=== PATIENT | female | born 1985 | race Hispanic/Latino ===

== ENCOUNTER 2016-12-23 10:31 | Emergency (ER) | payer OTHER ==
[2016-12-23 11:33] VITALS: BMI 28.0
[2016-12-23 12:18] LABS: HEMATOCRIT 33.8 % (34.0-47.0); MEAN CELL VOLUME 76.5 fl (81.0-99.0); MEAN CORPUSCULAR HEMOGLOBIN 25.3 pg (27.0-31.0); MEAN CORPUSCULAR HGB CONC 33.1 g/dL (33.0-37.0); RED CELL DISTRIBUTION WIDTH 12.9 % (11.5-14.5); WHITE BLOOD COUNT 11.2 K/uL (4.8-10.8)
[2016-12-23 12:34] LABS: ALB/GLOB RATIO 1.1 (1.0-2.1); ALKALINE PHOSPHATASE 113 U/L (38-126); ALT/SGPT 26 U/L (9-52); AST/SGOT 19 U/L (14-36); BLOOD UREA NITROGEN 8 mg/dl (7-17); CALCIUM 8.8 mg/dL (8.4-10.2); CARBON DIOXIDE 20 mmol/L (22-30); CHLORIDE 105 mmol/L (98-107); GFR AFRICAN-AMERICAN > 60; GLUCOSE,RANDOM 76 mg/dL (65-105); POTASSIUM 3.8 MMOL/L (3.6-5.0); SODIUM 133 mmol/l (132-148); TOTAL PROTEIN 6.7 G/DL (6.3-8.2); URIC ACID 3.8 mg/Dl (2.2-7.5)
[2016-12-23 12:35] LABS: RBC URINE 3 /hpf (0-3); URINE BACTERIA RARE (<OCC); URINE BILIRUBIN NEGATIVE (NEGATIVE); URINE BLOOD NEGATIVE (NEGATIVE); URINE COLOR YELLOW (YELLOW); URINE GLUCOSE (UA) NEG (Normal); URINE KETONE 20 mg/dL (NEGATIVE); URINE LEUKOCYTE ESTERASE TRACE Leu/uL (Negative); URINE PROTEIN NEGATIVE (NEGATIVE); URINE UROBILINOGEN 0.2-1.0 mg/dL (0.2-1.0); WBC URINE 5 /hpf (0-5)
[2016-12-23 18:17] VITALS: BP 117/71; PULSE 81; RESP 20; TEMP 98.4; O2SAT 98
== END 2016-12-23 13:30 | disposition home or self-care (01) ==
LOC: H.EROB 10:31 → H.EROB2 10:31
DX: O47.1 False labor at or after 37 completed weeks of gestation (principal); Z3A.38 38 weeks gestation of pregnancy

== ENCOUNTER 2017-01-14 23:05 | Inpatient (IN) | payer OTHER ==
[2017-01-14 23:33] VITALS: BMI 29.9
[2017-01-14] MEDS ORDERED: Lactated Ringer's 1,000 ML IV SCH (23:45)
[2017-01-14] MEDS: Lactated Ringer's 1,000 ML IV SCH (23:50)
[2017-01-15] MEDS ORDERED: Lactated Ringer's 500 ML IV SCH
[2017-01-15 00:21] LABS: BASO # 0.1 K/uL (0.0-0.2); BASO % 0.9 % (0.0-2.0); EOS # 0.2 K/uL (0.0-0.7); HEMATOCRIT 34.2 % (34.0-47.0); LYMPH % 17.3 % (20.0-40.0); MEAN CELL VOLUME 75.9 fl (81.0-99.0); MEAN CORPUSCULAR HEMOGLOBIN 24.3 pg (27.0-31.0); MEAN PLATELET VOLUME 9.4 fl (7.2-11.7); MONO % 5.9 % (0.0-10.0); NEUT # 12.8 K/uL (1.8-7.0); NEUT % 74.9 % (50.0-75.0); NRBC % 0.1 % (0.0-0.0); RED CELL DISTRIBUTION WIDTH 13.5 % (11.5-14.5); WHITE BLOOD COUNT 17.1 K/uL (4.8-10.8)
[2017-01-15] MEDS ORDERED: Benzocaine/Menthol SPRAY TOP PRN ×2 (00:30→04:44)
[2017-01-15] MEDS ORDERED: Bupivacaine HCl 0.25% PF (10 ml) Inj ONE (00:42)
[2017-01-15] MEDS ORDERED: Lidocaine 1% Inj (20ml) ONE (00:50)
[2017-01-15] MEDS: Lactated Ringer's 1,000 ML IV SCH (00:52)
--- NOTE | 2017-01-15 02:55 | OBPN ---
Datetime: 01/15/2017 00:44 IP Progress Impression: Normal progression of labor; Reassuring heart rate IP Procedures: Sterile Vag Exam; Epidural Placement IP Progress Plan: Continue present management; Anticipate Vaginal Delivery FHR - Baseline A Provider: 150 Gestation - Est Wks by US: 38.5 IP Progress Note Comment: Patient received epidural, painful ctx's q2min SVE: cervix dilated 10cm/ 100% effacement/ 0 A: normal progression of labor P: -continue present management -continuous monitoring, monitor labor progress Dr. Choudhury at bedside, case discussed Lisa Leija M.D. PGY2 OB Hospitalist on-call...OPt rec'd epidural (screaming when 8-9cm)mahndo NICHD Accel Fetus A IP Provider: 15X15 FHR Category Provider Fetus A: Category I NICHD Variability Prov Fetus A: Moderate 6-25bpm Dilatation, Provider: 10 Effacement, Provider: 100 Station, Provider: 0 NICHD Decel Fetus A IP Provider: None Datetime: 01/14/2017 23:27 Pool Provider: Positive Membranes, Provider: Ruptured Amniotic Fluid Color, Provider: Clear Contraction Comments Provider: + Presentation-Admit: Vertex Vital Signs Provider: Reviewed; Within Normal Limits
--- NOTE | 2017-01-15 02:55 | OBADHP ---
Datetime: 01/15/2017 00:44 FHR - Baseline A Provider: 150 Gestation - Est Wks by US: 38.5 NICHD Variability Prov Fetus A: Moderate 6-25bpm NICHD Accel Fetus A IP Provider: 15X15 FHR Category Provider Fetus A: Category I NICHD Decel Fetus A IP Provider: None Dilatation, Provider: 10 Effacement, Provider: 100 Station, Provider: 0 Datetime: 01/14/2017 23:27 Admit Comment, IP Provider: 31 yr at 38.5 wks GA by 1st tri US, SEVERIANO 01/23/17 , hx IVF, PCOS o n Metformin presents to [facility] with complaint of LOF since 10:30pm with ctxs q2min which began at 10:45 pm. Patient receives routine care (Dr Aguila - chart rev'd), denies any complicati ons with this . OBHx: 1 induced , 3 spontaneous, 3rd tri labs wnl (GBS neg, RPR neg, HIV neg), Hep B neg, Rubella Immune, Tdap given, Influenza vaccine given PMHx: PCOS SurgHx: excision buttock abscess SocHx: denies smoking, Etoh, drugs FMHx: noncontributory Meds: Metformin 500mg PO TID, Amoxicillin (last dose today for URI) Allergies: Clindamycin Monitoring: FHR 145 with moderate variability, accelerations 15x15, no decels PE: general: painful contractions q2min, otherwise pleasant, in no acute distress HEENT: normocephalic, atraumatic, PERRLA Lungs: clear to auscultation, good air entry Cardiovascular: normal S1 S2 , no m/r/g Abd: normal bowel sounds, nontender Ext: no edema, full ROM SVE: cervix dilated 3cm/ 75% effacement/ station -2, positive pooling A: 31yr at 38.5 wks GA hx IVF, PCOS on Metformin , SROM and ctx q2min EARLY LABOR P: Admit to labor and delivery -IV insertion, IVF, CBC, Type and screen -Continuous monitoring, monitor labor progress -Anesthesia consult for epidural patient seen and examined at bedside by Dr. Choudhury, case discussed Lisa Leija M.D. PGY2 OB Hospitalist note: This pt was seen and examined by me. Agree with above note. MAHNDO Pelvic Type - PN: Adequate Extremities - PN: Normal Abdomen - PN: Normal Back - PN: Normal Lungs - PN: Normal Heart - PN: Normal Thyroid - PN: Normal Neurologic - PN: Normal HEENT - PN: Normal General - PN: Normal Presentation-Admit: Vertex Amniotic Fluid Color, Provider: Clear Membranes, Provider: Ruptured Contraction Comments Provider: + Comments, ACOG Physical Exam: ROS: General: no weakness; no fatigue HEENT: no THOMPSON; no visual dist CV: no palpitations; no no CP GI: no N/V no diarhea : no F/U/D MS: No joint pain Pool Provider: Positive IP Hx Assessment: The History has been Reviewed and is Current Vital Signs Provider: Reviewed; Within Normal Limits IP Chief Complaint: Uterine contractions; Suspected ruptured membranes Genitourinary Exam: Normal EGA AdmitDate IP: 38.5 IP Adm Impression: Term, intrauterine ; Active labor; Ruptured Membranes IP Admit Plan: Admit to unit; Initiate labor protocol; Observation/Evaluation
[2017-01-15] MEDS ORDERED: Oxytocin 10 Units/ml Inj IV SCH (03:00)
--- NOTE | 2017-01-15 03:03 | OBDS ---
DELIVERY PERSONNEL Delivery Doctor: Uma Choudhury DO Construction Driver: ECroweRN/SLaBarbara Anesthesiologist: Katie Marsh MD Resident: Dr. Leija, PGY2 MATERNAL INFORMATION Delivery Anesthesia: Epidural Medications in Delivery: Pitocin 10 units in 500 mls/Lidocaine Maternal Complications: Precipitous Labor (<3hrs) Provider Comments: Over intact perineum, of live female infant. Infant was crying spontaneousl y and bulb suctioned. APGAR9,9. was placed on mother's chest for [id number]. Placenta was deliveed intact spontaneously. EBL 200cc She remained stable LABOR SUMMARY EDC: 01/23/2017 00:00 No. Babies in Womb: 1 Attempted: No Labor Anesthesia: Epidural LABOR INFORMATION Reason for Induction: Not Applicable Complete Dilatation: 01/15/2017 00:40 Oxytocin: N/A Group B Beta Strep: Negative Antibiotics # of Doses: N/A Antibiotics Time of Last Dose: N/A Steroids Given: None Reason Steroids Not Administered: Not Applicable MEMBRANES Membranes Rupture Method: Spontaneous Rupture of Membranes: 01/14/2017 22:30 Amniotic Fluid Color: Clear Amniotic Fluid Amount: Moderate Amniotic Fluid Odor: Normal VAGINAL DELIVERY Episiotomy: None Laceration Extension: First Degree Laceration Type: Perineal Other Laceration: Right inner labial laceratoin Laceration Repair: Yes Laceration Repair Note: 1% Lidocaine infiltrated. 2.0 Vicryl Rapide suture used to repair both lace ratoins (interrupted). Sponge Count Correct: Yes Sharps Count Correct: Yes Count Comment: two suture needles one syringe 5 lap pads BABY A INFORMATION Born in Route : No : N/A INFANT INFORMATION BABY A Gestational Age at Delivery: 38.6 Gestational Status: Term IDENTIFICATION/MEDS BABY A ID Band Number: [id number] ID Band Location: Left Leg; Left Arm CORD INFORMATION BABY A Infant Suction: Mouth; Nose
[2017-01-15 03:57] VITALS: O2SAT 100
[2017-01-15] MEDS ORDERED: Oxycodone/Acetaminophen 5/325 mg Tab PO PRN (07:28)
[2017-01-15 15:33] LABS: BASO % 0.2 % (0.0-2.0); EOS % 0.2 % (0.0-4.0); HEMATOCRIT 31.8 % (34.0-47.0); LYMPH # 2.4 K/uL (1.0-4.3); LYMPH % 12.3 % (20.0-40.0); MEAN CELL VOLUME 76.1 fl (81.0-99.0); MEAN CORPUSCULAR HEMOGLOBIN 24.2 pg (27.0-31.0); MEAN CORPUSCULAR HGB CONC 31.8 g/dL (33.0-37.0); MEAN PLATELET VOLUME 9.3 fl (7.2-11.7); MONO # 1.3 K/uL (0.0-0.8); MONO % 6.9 % (0.0-10.0); NEUT # 15.5 K/uL (1.8-7.0); NEUT % 80.4 % (50.0-75.0); RED CELL DISTRIBUTION WIDTH 13.4 % (11.5-14.5); WHITE BLOOD COUNT 19.3 K/uL (4.8-10.8)
[2017-01-16] MEDS ORDERED: METFORMIN 500 MG PO SCH (10:44)
--- NOTE | 2017-01-16 20:36 | OBPPN ---
Datetime: 01/16/2017 20:33 PP Pain Prov: Within normal limits PP Nausea Prov: Denies PP Flatus Prov: Yes PP BM Prov: Yes PP Breasts Prov: Normal PP Heart Prov: Normal PP Lungs Prov: Normal PP Abdomen/Uterus Prov: Normal PP Lochia Prov: Normal PP Vulva/Perineum Prov: Normal PP CVA Tenderness Prov: Normal PP Extremities Prov: Normal PP Comments Phys Exam Prov: Uterus firm, 2 fingerbreadths below umbilicus No deep Tenderness bilaterally PP Impression Prov: Normal progression PP Plan Prov: Continue present management PP Progress Note Prov: day #1 status post normal spontaneous vaginal delivery Continue routine care IP PP Procedures: None Vital Signs Provider PP: Reviewed; Within Normal Limits
--- NOTE | 2017-01-17 09:14 | OBPPN ---
Datetime: 01/17/2017 09:11 PP Pain Prov: Within normal limits PP Abdomen/Uterus Prov: Normal PP Lochia Prov: Normal PP Extremities Prov: Normal PP Progress Prov: Normal PP Impression Prov: Normal progression PP Plan Prov: Discharge PP Progress Note Prov: PPD 2 s/p , doing well, breast feeding Rx ferrous sulfate given Discharge home today
--- NOTE | 2017-01-17 09:16 | OBDCSUM ---
Datetime: 01/17/2017 09:13 Discharged to, Provider: Home Follow up at, Provider: Dr. Pompa Disch Instr Activity: Normal activity; May Shower Disch Instr Diet: Regular Discharge Instructions, Provider: Routine instructions given Discharge Diagnosis, Provider: Term Delivered Discharge Time: 01/17/2017 09:13 Follow up in weeks, Provider: 6 weeks Contraception discussed, Prov: No Disch Activity Restrictions: No exercising; No lifting; No sexual activity; Nothing in vagina - Inte rcourse, tampons, douche
[2017-01-17 16:04] VITALS: BP 132/92; PULSE 78; RESP 20; TEMP 98
== END 2017-01-17 11:45 | disposition home or self-care (01) | DRG 775 ==
LOC: H.EROB2 23:05 → H.EROB 23:25 → H.L&D 23:49 → H.EROB2 23:55 → H.OB/GYN 01-15 05:00
PROVIDERS: ADMIT Obstetrics & Gynecology; ATTEND Obstetrics & Gynecology
PROC: 0HQ9XZZ Repair Perineum Skin, External Approach (ICD-10-PCS; principal; 2017-01-14)
PROC: 10E0XZZ Delivery of Products of Conception, External Approach (ICD-10-PCS; 2017-01-14)
PROC: 4A1HXCZ Monitoring of Products of Conception, Cardiac Rate, External Approach (ICD-10-PCS; 2017-01-14)
DX: O62.3 Precipitate labor (principal); E28.2 Polycystic ovarian syndrome; Z37.0 Single live birth; O70.0 First degree perineal laceration during delivery; Z3A.38 38 weeks gestation of pregnancy